=== PATIENT | female | born 1990 | race Caucasian/White ===

== ENCOUNTER 2019-05-30 10:13 | Inpatient (IN) | payer OTHER ==
[2019-05-30] MEDS ORDERED: Lactated Ringers 1000 ML Bag* 1,000 ML IV ONE (10:48)
[2019-05-30] MEDS ORDERED: Buffered Lidocaine 1% SYRIN* 1 ML/SYRINGE INTRADERM ONE (10:48)
[2019-05-30] MEDS ORDERED: Lactated Ringers 1000 ML Bag* 1,000 ML IV SCH ×2 (11:00→23:45)
[2019-05-30 11:40] LABS: ABS Eosinophils 0.2 10^3/ul (0-0.6); ABS Monocytes 0.6 10^3/ul (0-0.8); ABS Neutrophils 10.7 10^3/ul (1.5-7.7); Eosinophil % 1.3 %; Hematocrit 38 % (35-47); Lymphocyte % 14.6 %; Mean Corpuscular HGB Conc 34 g/dL (31-36); Mean Corpuscular Hemoglobin 31 pg (27-31); Mean Corpuscular Volume 90 fL (80-97); Mean Platelet Volume 7.2 fL (7.4-10.4); Platelet Count 263 10^3/uL (150-450); Red Cell Distribution Width 14 % (10-15); White Blood Count 13.5 10^3/uL (3.5-10.8)
[2019-05-30] MEDS: Oxytocin in LR* 20 UNITS/1,000 ML BAG IVPB SCH (11:42)
[2019-05-30 14:15] LABS: Urine Benzodiazepine Screen None Detected (None Detect); Urine Opiates Screen None Detected (None Detect)
--- NOTE | 2019-05-30 15:47 | HP ---
General Information - Reason for Visit Pt is a 28yo at 39 wks. Here for IOL due to h/o shoulder dystocia with her first baby (8lb 7oz). No issues with second delivery, induced at 39 wks, 7lb 4oz. only complicated by morbid obesity although pt did not gain any weight during . - General Information Maternal Age: 28 Grav: 3 Para: 2 SAB: 0 IEA: 0 Estimated Due Date: 06/05/19 Determined By: LMP Gestational Age in Weeks/Days: 39+1 Maternal Blood Type and Rh: O Positive - Results this Serology/RPR Result: Non-Reactive Rubella Result: Immune HBsAg Result: Negative HIV Result: Negative GBS Culture Result: Negative Past Medical History Delivery History: Hx Complicated Vaginal Delivery - see above Pertinent Past Medical History: See Records Pertinent Past Surgical History: See Records - tonsils, lap tim - Antepartal Records Antepartal Records: Reviewed, Complicated by: - obesity Review of Systems Constitutional: Comfortable CV Complaint: No Respiratory: Shortness of Breath: No Gastrointestinal: No Nausea/Vomiting Genitourinary: No Dysuria, No Bleeding, No Leaking Fluid Musculoskeletal: No Complaint, No Epigastric Pain Neurological: No Headache Movement: Normal Exam Allergies/Adverse Reactions: Allergies Sulfa (Sulfonamide Antibiotics) Allergy (Intermediate, Verified 05/30/19 10:57) Rash VS normal, afebrile Lab Values - Entire Visit: Laboratory Tests 05/30/19 05/30/19 05/30/19 11:28 11:28 13:28 WBC 13.5 H RBC 4.20 Hgb 13.0 Hct 38 MCV 90 MCH 31 MCHC 34 RDW 14 Plt Count 263 MPV 7.2 L Neut % (Auto) 79.4 Lymph % (Auto) 14.6 [place] % (Auto) 4.4 Eos % (Auto) 1.3 Baso % (Auto) 0.3 Absolute Neuts (auto) 10.7 H Absolute Lymphs (auto) 2.0 Absolute Monos (auto) 0.6 Absolute Eos (auto) 0.2 Absolute Basos (auto) 0.0 Absolute Nucleated RBC 0.0 Nucleated RBC % 0.0 Urine Opiates Screen None detected Ur Barbiturates Screen None detected Ur Phencyclidine Scrn None detected Ur Amphetamines Screen None detected U Benzodiazepines Scrn None detected Urine Cocaine Screen None detected U Cannabinoids Screen None detected Blood Type O Positive Antibody Screen Negative - Measurements Height: 5 ft 6.5 in Weight: 312 lb Weight in lbs: 312.484832 Body Mass Index (BMI): 49.6 Pre- Weight: 292 lb Weight Gained This : 20 lbs and 0 ozs - Exam Breast: Breast Exam Deferred Heart: Normal Rhythm/Heart Sounds HEENT: No Significant Findings Lungs: Clear Bilaterally Rectal: Rectal Exam Deferred - Abdominal Exam Abdomen Exam: Non-Tender, Fundal Height Consistent with Dates - Ultrasound/Biophysical Profile Ultrasound Status: Not Done Targeted Exam Findings See L&D Outpatient Visit Provider Note for Findings: N/A Estimated Weight: 7lb 8oz Cervical Exam: 2cm Effacement: 50% Station: -2 Presenting Part: Vertex Membrane Status: Intact Bleeding/Discharge: None EFM Findings - External Monitor Findings Baseline Heart Rate: 140 External Monitor Findings: Accelerations Present, No Pattern of Variable or Late Decelerations, Variability Moderate, Baseline Stable Contractions: None Assessment/Plan - Assessment 39 wks with h/o shoulder dystocia, morbid obesity. Very reassuring testing. Plan pitocin induction, then AROM when further dilation and head has descended a little. - Obstetrical Risk Factors Obstetrical Risk Factors: Obesity - Plan Plan: Induction, Admit - Anticipate Vaginal Delivery - Date/Time of Admission Date of Admission: 05/30/19 Time of Admission: 11:00
[2019-05-30] MEDS ORDERED: Dibucaine 1% 28.35 GM TUBE PR PRN (23:59)
[2019-05-30] MEDS ORDERED: Witch Hazel PAD* JAR TOPICAL PRN (23:59)
[2019-05-30] MEDS ORDERED: Methylergonovine INJ* 0.2 MG/ML 1ML AMP IM ONE (23:59)
[2019-05-30] MEDS ORDERED: Acetaminophen TAB* 325 MG PO PRN (23:59)
--- NOTE | 2019-05-30 23:59 | PROCNOTE ---
[facility] OB: Delivery Note - Nursery Level of Nursery: Regular/Bedside - Perineum Perineal Injury: None/Intact Perineal Repair: None - Events Delivery Events of Note: Pitocin During Labor, Post- Bleeding - Meds Given - Methergine IM given - Additional Delivery Notes Additional Delivery Notes: Pt had gradual progress from 2cm to 3cm on pitocin. AROM with clear fluid resulted in more intense ctx. Once she reached 5cm, she progressed more quickly. At 8cm, she was involuntarily pushing with intense pressure and pain. Cervix became fully dilated. Pt then pushed for three sets of contractions. Head delivered in a controlled fashion. Initially shoulders were tight as they were transverse with a compound hand. Nuchal cord reduced after delivery. placed on mother's abdomen for drying and stim. IV pitocin increased. Placenta delivered spontaneously and intact. With fundal massage, there was initally brisk bleeding. IM Methergine ordered and given. With bimanual massage and pitocin, fundal tone improved and bleeding slowed. Intact perineum, no visible lacerations.
[2019-05-31] MEDS: Oxytocin in LR* 20 UNITS/1,000 ML BAG IVPB SCH (00:42)
[2019-05-31] MEDS: Ibuprofen TAB* 600 MG PO PRN ×4 (00:42→21:49)
[2019-05-31] MEDS ORDERED: Ammonia Inhalant* 1 EA AMP ONE (02:47)
[2019-05-31] MEDS: Docusate CAP* 100 MG PO SCH ×3 (08:25→21:49)
[2019-05-31] MEDS ORDERED: Simethicone TAB* 80 MG TAB.CHEW PO SCH (08:30)
[2019-05-31] MEDS ORDERED: Ferrous Gluconate TAB* 324 MG TAB PO SCH (09:00)
[2019-05-31 10:25] LABS: ABS Lymphocytes 1.9 10^3/ul (1.0-4.8); ABS Monocytes 0.5 10^3/ul (0-0.8); ABS Neutrophils 15.6 10^3/ul (1.5-7.7); Eosinophil % 0.2 %; Hematocrit 34 % (35-47); Hemoglobin 11.8 g/dL (12.0-16.0); Lymphocyte % 10.4 %; Mean Corpuscular HGB Conc 34 g/dL (31-36); Mean Corpuscular Hemoglobin 31 pg (27-31); Mean Corpuscular Volume 89 fL (80-97); Mean Platelet Volume 7.2 fL (7.4-10.4); Platelet Count 258 10^3/uL (150-450); Red Blood Count 3.86 10^6 /uL (3.70-4.87); Red Cell Distribution Width 14 % (10-15); White Blood Count 18.1 10^3/uL (3.5-10.8)
[2019-06-01 08:52] VITALS: BP 132/67
[2019-06-01] MEDS: Ibuprofen TAB* 600 MG PO PRN (09:41)
[2019-06-01] MEDS: Docusate CAP* 100 MG PO SCH (09:41)
--- NOTE | 2019-06-01 10:24 | PN ---
Progress Note - Progress Note Date of Service: 06/01/19 Note: S- NO C/O'S. O Vital Signs: Temp Pulse Resp BP Pulse Ox 98.2 F 78 18 132/67 100 06/01/19 08:47 06/01/19 08:47 06/01/19 08:47 06/01/19 08:47 05/31/19 20:08 Laboratory Results - last 24 hr 05/31/19 10:09 WBC 18.1 H RBC 3.86 Hgb 11.8 L Hct 34 L MCV 89 MCH 31 MCHC 34 RDW 14 Plt Count 258 MPV 7.2 L Neut % (Auto) 86.2 Lymph % (Auto) 10.4 [place] % (Auto) 3.0 Eos % (Auto) 0.2 Baso % (Auto) 0.2 Absolute Neuts (auto) 15.6 H Absolute Lymphs (auto) 1.9 Absolute Monos (auto) 0.5 Absolute Eos (auto) 0.0 Absolute Basos (auto) 0.0 Absolute Nucleated RBC 0.0 Nucleated RBC % 0.0 ABD SOFT FUNDUS FIRM BREAST SOFT. LOCHIA LITE A PT STABLE. D/C RTC 6 WEEKS. P D/C TODAY.
== END 2019-06-01 12:25 | disposition home or self-care (01) | DRG 560 ==
LOC: MCHOBOUT 10:13 → MCHOB 10:58
PROVIDERS: ADMIT Obstetrics & Gynecology; ATTEND Obstetrics & Gynecology
PROC: 10E0XZZ Delivery of Products of Conception, External Approach (ICD-10-PCS; principal; 2019-05-30)
PROC: 3E033VJ Introduction of Other Hormone into Peripheral Vein, Percutaneous Approach (ICD-10-PCS; 2019-05-30)
PROC: 10907ZC Drainage of Amniotic Fluid, Therapeutic from Products of Conception, Via Natural or Artificial Opening (ICD-10-PCS; 2019-05-30)
DX: O99.214 Obesity complicating childbirth (principal); Z37.0 Single live birth; E66.01 Morbid (severe) obesity due to excess calories; O69.81X0 Labor and delivery complicated by cord around neck, without compression, not applicable or unspecified; O32.6XX0 Maternal care for compound presentation, not applicable or unspecified; O72.0 Third-stage hemorrhage; Z3A.39 39 weeks gestation of pregnancy
CPT/HCPCS: 36415; 80307; 85025; 86850; 86900; 86901; A9270-GY

== ENCOUNTER 2023-04-17 10:07 | Inpatient (IN) ==
[2023-04-17] MEDS ORDERED: Promethazine INJ(RESTRICTED) 25 MG/ML 1 ml VIAL IV PRN (10:58)
[2023-04-17] MEDS ORDERED: Nalbuphine 10 MG/ML 1 ML VIAL IV PRN (10:58)
[2023-04-17] MEDS ORDERED: Dinoprostone 10 MG VAG.SUPP VAGINAL ONE (10:58)
[2023-04-17] MEDS ORDERED: Lactated Ringers 1000 ml BAG 1,000 ML IV ONE (10:58)
[2023-04-17] MEDS ORDERED: Buffered Lidocaine 1% SYRIN 1 ml INTRADERM ONE (10:58)
[2023-04-17] MEDS ORDERED: Lactated Ringers 1000 ml BAG 1,000 ML IV SCH (11:00)
[2023-04-17 12:16] LABS: ABS Basophils 0.1 10^3/uL (0.0-0.1); ABS Eosinophils 0.3 10^3/uL (0.0-0.5); ABS Lymphocytes 2.1 10^3/uL (1.0-4.8); ABS Monocytes 0.6 10^3/uL (0.0-0.9); ABS Neutrophils 12.5 10^3/uL (1.5-7.6); ABS Nucleated RBC 0.01 10^3/ul; Eosinophil % 1.7 %; Hematocrit 34.6 % (35-45); Hemoglobin 12.1 g/dL (11.5-14.3); Lymphocyte % 13.2 %; Mean Corpuscular Hgb Conc 34.8 g/dL (31-36); Mean Corpuscular Volume 86.1 fL (80-97); Mean Platelet Volume 7.2 fL (7.5-11.2); Nucleated Red Blood Cells % 0.1 /100 WBC (0.0-0.4); Platelet Count 304 10^3/uL (150-450); Red Blood Count 4.02 10^6/uL (3.63-4.92); Red Cell Distribution Width 13.6 % (12-17); White Blood Count 15.5 10^3/uL (3.8-11.8)
[2023-04-17 12:18] LABS: Urine Appearance Turbid; Urine Bilirubin Negative (Negative); Urine Blood Negative (Negative); Urine Color Yellow; Urine Glucose Negative (Negative); Urine Ketones Negative (Negative); Urine Nitrite Negative (Negative); Urine Protein 1+(30 mg/dL) (Negative); Urine Urobilinogen Negative (Negative)
[2023-04-17 12:34] LABS: Urine Bacteria Absent (Absent); Urine Red Blood Cell 2+(6-10/hpf) (Absent); Urine Squamous Epithelial Cell Present (Absent); Urine White Blood Cell 3+(>20/hpf) (Absent)
[2023-04-17 12:49] LABS: Urine Benzodiazepine Screen None Detected (None Detect); Urine Cannabinoids Screen None Detected (None Detect); Urine Opiates Screen None Detected (None Detect)
[2023-04-18] MEDS ORDERED: Morphine 10 MG/ML VIAL (1 ml) IV ONE (00:51)
[2023-04-18] MEDS ORDERED: Lidocaine 1% w EPI 1:200,000 SDV 30 ML VIAL ONE (11:15)
[2023-04-18] MEDS ORDERED: OBEPIDURAL (200 ML) 0 ML EPIDURAL ONE (11:15)
[2023-04-18] MEDS ORDERED: Oxytocin in LR 20,000 MILLI.UNIT/1,000 ML BAG IV ONE (11:41)
[2023-04-18] MEDS: Oxytocin in LR 20,000 MILLI.UNIT/1,000 ML BAG IV SCH ×2 (11:43→17:07)
[2023-04-18] MEDS ORDERED: Methylergonovine 0.2 mg AMPULE 1 ml AMP ONE (11:45)
[2023-04-18] MEDS ORDERED: fentaNYL 100 mcg/2 ml 50 MCG/ML VIAL ONE (11:59)
[2023-04-18] MEDS ORDERED: ceFAZolin 2 GM PREMIX 2 GM/50 ML BAG ONE (12:04)
[2023-04-18] MEDS ORDERED: Witch Hazel PAD JAR TOPICAL PRN (12:39)
[2023-04-18] MEDS ORDERED: Methylergonovine 0.2 mg AMPULE 1 ml AMP IM ONE (12:39)
[2023-04-18] MEDS ORDERED: Glycerin ADULT 2.4 gm SUPP PR PRN (12:39)
[2023-04-18] MEDS ORDERED: Dibucaine 1% OINT 28.35 GM TUBE PR PRN (12:39)
[2023-04-18] MEDS ORDERED: fentaNYL 100 mcg/2 ml 50 MCG/ML VIAL IV SLOW PU ONE (12:45)
[2023-04-18] MEDS ORDERED: ceFAZolin 1 GM ADVAN 1 GM in NS 0.9% 50 ML 50 ML IVPB ONE (12:46)
[2023-04-18] MEDS ORDERED: ceFAZolin 2 GM in NS PREMIX 2 GM/100 ML BAG IVPB ONE (12:46)
[2023-04-18 12:55] LABS: Hematocrit 34.2 % (35-45); Hemoglobin 11.7 g/dL (11.5-14.3); Mean Corpuscular Hemoglobin 29.6 pg (27-33); Mean Corpuscular Hgb Conc 34.1 g/dL (31-36); Mean Corpuscular Volume 86.7 fL (80-97); Mean Platelet Volume 7.2 fL (7.5-11.2); Platelet Count 363 10^3/uL (150-450); Red Blood Count 3.94 10^6/uL (3.63-4.92); Red Cell Distribution Width 13.6 % (12-17); White Blood Count 30.1 10^3/uL (3.8-11.8)
[2023-04-18] MEDS ORDERED: Lactated Ringers 1000 ml BAG 1,000 ML IV SCH (13:00)
[2023-04-18 14:55] LABS: ABS Monocytes 0.8 10^3/uL (0.0-0.9); ABS Neutrophils 28.2 10^3/uL (1.5-7.6); Eosinophil % 0.2 %; Lymphocyte % 3.5 %
[2023-04-18] MEDS ORDERED: Lactated Ringers 1000 ml BAG 500 ML IV ONE (17:13)
[2023-04-18 17:15] LABS: Urine Appearance Cloudy; Urine Bilirubin Negative (Negative); Urine Blood 1+ (Negative); Urine Color Yellow; Urine Glucose Negative (Negative); Urine Ketones 1+ (Negative); Urine Nitrite Negative (Negative); Urine Protein 2+(100 mg/dL) (Negative); Urine Specific Gravity 1.029 (1.002-1.030); Urine Urobilinogen Negative (Negative)
[2023-04-18 17:27] LABS: Urine Bacteria Absent (Absent); Urine Red Blood Cell 2+(6-10/hpf) (Absent); Urine Squamous Epithelial Cell Present (Absent); Urine White Blood Cell Trace(0-5/hpf) (Absent)
[2023-04-18] MEDS ORDERED: Buffered Lidocaine 1% SYRIN 1 ml ONE (18:36)
[2023-04-18 19:02] LABS: Hematocrit 28.4 % (35-45); Hemoglobin 9.5 g/dL (11.5-14.3); Mean Corpuscular Hemoglobin 30.2 pg (27-33); Mean Corpuscular Hgb Conc 33.5 g/dL (31-36); Mean Platelet Volume 7.3 fL (7.5-11.2); Platelet Count 296 10^3/uL (150-450); Red Blood Count 3.16 10^6/uL (3.63-4.92); Red Cell Distribution Width 13.4 % (12-17)
[2023-04-18 19:30] LABS: ABS Basophils 0.1 10^3/uL (0.0-0.1); ABS Lymphocytes 1.6 10^3/uL (1.0-4.8); ABS Monocytes 1.1 10^3/uL (0.0-0.9); ABS Neutrophils 23.3 10^3/uL (1.5-7.6); ABS Nucleated RBC 0.01 10^3/ul; RBC Morphology Normal (Normal)
[2023-04-18] MEDS: ceFAZolin 2 GM PREMIX 2 GM/50 ML BAG IV SCH (19:57)
[2023-04-18] MEDS ORDERED: ceFAZolin *3* GM in NS PREMIX 3 GM/100 ML BAG IV SCH (20:00)
[2023-04-19] MEDS: Oxytocin in LR 20,000 MILLI.UNIT/1,000 ML BAG IV SCH ×3 (00:52→12:14)
[2023-04-19] MEDS: ceFAZolin 2 GM PREMIX 2 GM/50 ML BAG IV SCH ×2 (04:31→11:33)
[2023-04-19 07:06] LABS: ABS Basophils 0.1 10^3/uL (0.0-0.1); ABS Eosinophils 0.2 10^3/uL (0.0-0.5); ABS Lymphocytes 2.6 10^3/uL (1.0-4.8); ABS Monocytes 0.8 10^3/uL (0.0-0.9); ABS Nucleated RBC 0.02 10^3/ul; Eosinophil % 1.3 %; Hematocrit 21.8 % (35-45); Hemoglobin 7.6 g/dL (11.5-14.3); Lymphocyte % 16.7 %; Mean Corpuscular Hemoglobin 30.4 pg (27-33); Mean Corpuscular Hgb Conc 35.1 g/dL (31-36); Mean Corpuscular Volume 86.5 fL (80-97); Mean Platelet Volume 7.1 fL (7.5-11.2); Nucleated Red Blood Cells % 0.1 /100 WBC (0.0-0.4); Platelet Count 251 10^3/uL (150-450); Red Blood Count 2.52 10^6/uL (3.63-4.92); Red Cell Distribution Width 13.5 % (12-17); White Blood Count 15.7 10^3/uL (3.8-11.8)
[2023-04-20 06:33] LABS: ABS Eosinophils 0.4 10^3/uL (0.0-0.5); ABS Lymphocytes 2.6 10^3/uL (1.0-4.8); ABS Monocytes 0.6 10^3/uL (0.0-0.9); ABS Neutrophils 7.9 10^3/uL (1.5-7.6); ABS Nucleated RBC 0.01 10^3/ul; Eosinophil % 3.3 %; Hematocrit 20.1 % (35-45); Hemoglobin 7.1 g/dL (11.5-14.3); Lymphocyte % 22.6 %; Mean Corpuscular Hemoglobin 31.1 pg (27-33); Mean Corpuscular Hgb Conc 35.2 g/dL (31-36); Mean Corpuscular Volume 88.5 fL (80-97); Mean Platelet Volume 7.1 fL (7.5-11.2); Platelet Count 211 10^3/uL (150-450); Red Blood Count 2.27 10^6/uL (3.63-4.92); Red Cell Distribution Width 13.7 % (12-17); White Blood Count 11.5 10^3/uL (3.8-11.8)
[2023-04-20] MEDS ORDERED: Iron Sucrose 200 MG in NS 0.9% 100 ml BAG 100 ML IVPB ONE (11:44)
[2023-04-20 12:50] VITALS: BP 118/60
== END 2023-04-20 14:07 | disposition home or self-care (01) | DRG 560 ==
LOC: MCHOBOUT 10:07 → MCHOB 11:57
PROVIDERS: ADMIT Obstetrics & Gynecology; ATTEND Obstetrics & Gynecology